=== PATIENT | male | born 1935 | race Caucasian/White ===

== ENCOUNTER 2016-06-18 17:13 | Emergency (ER) | payer OTHER ==
[~2016-06-18] VITALS: Ht 177.8 cm; Wt 77.2 kg
[~2016-06-18 17:13] MED LIST: ATORVASTATIN CA10 MG PO; Ecotrin PO; FINASTERIDE5 MG PO; TAMSULOSIN HCL0.4 MG PO; ZOLPIDEM TARTRAT5 MG PO
[2016-06-18] MEDS ORDERED: KEFLEX500 MG PO (17:38)
[2016-06-18 18:14] VITALS: BP 160/88
== END 2016-06-18 18:15 | disposition home or self-care (01) ==
LOC: EME 17:13
DX: S61.412A Laceration without foreign body of left hand, initial encounter (principal); W45.8XXA Other foreign body or object entering through skin, initial encounter
CPT/HCPCS: 99281; 99284

== ENCOUNTER 2017-03-27 00:44 | Observation (INO) | payer OTHER ==
[~2017-03-27] VITALS: Ht 175.3 cm; Wt 91.9 kg
[~2017-03-27 00:44] MED LIST changes: +KEFLEX500 MG PO
[2017-03-27 01:11] LABS: HEMATOCRIT 41.7 % (38.0-50.0); HEMOGLOBIN 14.3 G/DL (12.5-16.6); MCH 30.9 PG (29.0-34.0); MCHC 34.3 G/DL (30.0-36.0); MCV 90.1 FL (86-99); PLATELET COUNT 163 K/uL (156-360); RBC DIS.WIDTH-CV 12.1 % (11.8-14.6); RBC DIS.WIDTH-SD 39.8 % (39-53); RED BLOOD COUNT 4.63 M/uL (4.00-5.50); WHITE BLOOD COUNT 6.2 K/uL (4.1-10.2)
[2017-03-27 01:20] LABS: CHLORIDE 106 mEq/L (99-109); POTASSIUM 4.6 mEq/L (3.7-5.4); SODIUM 141 mEq/L (136-147)
[2017-03-27 01:22] LABS: GLUCOSE 106 mg/dL (70-99)
[2017-03-27 01:26] LABS: CREATININE 1.7 mg/dL (0.6-1.3); GFR ESTIMATE (CALCULATED) 41 mL/min/ (58.99-99999)
[2017-03-27 01:27] LABS: UREA NITROGEN (BUN) 27 mg/dL (9-23)
[2017-03-27 01:32] LABS: TROP-I INTERPRETATION NEGATIVE; TROPONIN-I < 0.01 ng/mL (0.0-0.30)
[2017-03-27] MEDS ORDERED: ASPIR-LOW81 MG PO (01:47)
[2017-03-27] MEDS ORDERED: LISINOPRIL10 MG PO (01:48)
[2017-03-27 04:18] VITALS: BP 129/66
[2017-03-27 05:53] LABS: TROP-I INTERPRETATION NEGATIVE; TROPONIN-I < 0.01 ng/mL (0.0-0.30)
[2017-03-27 06:35] LABS: HDL CHOLESTEROL 43 MG/DL (Desirable>=40); LDL CHOLESTEROL 82 mg/dL (Desirable<100); NON-HDL CHOLESTEROL 97 mg/dL (Desirable<160); TOTAL CHOLESTEROL 140 mg/dL (Desirable<200); TRIGLYCERIDES 75 MG/DL (Normal: <150)
[2017-03-27 08:26] VITALS: BP 102/58
[2017-03-27 11:57] VITALS: BP 110/71
[2017-03-27 12:47] LABS: TROP-I INTERPRETATION NEGATIVE; TROPONIN-I < 0.01 ng/mL (0.0-0.30)
== END 2017-03-27 14:52 | disposition home or self-care (01) ==
LOC: EME 00:44 → EDOF 02:35 → ENRESERV 02:36 → 5WEST 04:09
PROVIDERS: Hospitalist
DX: R07.89 Other chest pain (principal); M25.512 Pain in left shoulder; M79.602 Pain in left arm; I10 Essential (primary) hypertension; E78.00 Pure hypercholesterolemia, unspecified; N40.0 Benign prostatic hyperplasia without lower urinary tract symptoms; F40.240 Claustrophobia; Z79.82 Long term (current) use of aspirin; Z88.0 Allergy status to penicillin; Z85.46 Personal history of malignant neoplasm of prostate
CPT/HCPCS: 71046; 71250; 80048; 80061; 84484; 85027; 93005; G0378